=== PATIENT | male | born 2000 | race Caucasian/White ===

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

== ENCOUNTER → 2023-08-15 | Outpatient (CLI) | payer BC ==
--- NOTE | 2023-08-15 17:31 | MR ---
EXAMINATION TYPE: MR knee RT wo con DATE OF EXAM: 08/15/2023 COMPARISON: 02/21/2015 HISTORY: 23-year-old male M2 5.561, Rt knee pain TECHNIQUE: Multiplanar, multisequence imaging of the right knee is performed without IV contrast. FINDINGS: The ACL appears to be chronically torn. Some minimal wispy fibers may remain. The PCL is intact. MCL and LCL complex are intact. There is an oblique undersurface tear extending through the anterior horn of the lateral meniscus. Th e oblique tear extends posteriorly through the body to the junction with the posterior body. Mild irregular cartilage loss throughout the mid central and mid weightbearing aspect of the medial c ompartment. Diminutive appearance to the body and posterior horn of the medial meniscus could reflect chronic tea r or interval partial meniscectomy. Overall medial compartment articular cartilage volume is maintain ed. There is some focal marrow edema along the far posterior lateral femoral condyle with an adjacent 2.0 cm ganglion cyst that corresponds to the origin of the lateral head gastrocnemius. Extensor mechanism is intact. There is a small knee joint effusion without Rubio's cyst. Patellofemoral compartment articular cartilage is grossly intact. Mild thinning along the medial troc hlear facet. Normal popliteal artery anatomy and muscle bulk. No suspicious bone marrow replacement. IMPRESSION: 1. Chronically torn ACL. Some minimal wispy fibers may remain. Correlate for any instability on physi justina exam. 2. Oblique tear involving the anterior horn and body of the lateral meniscus extending back to the ju nction with the posterior horn. 3. Diminutive posterior horn and body of the medial meniscus could reflect chronic tear (progressed rom 2014) versus interval partial meniscectomy. 4. Focal marrow edema along the far posterior, nonarticular aspect of the lateral femoral condyle. Gi brittni the overlying ganglion cyst, possibly reactive change at the origin of the lateral head gastrocne mius. Possibly reflecting a partial tear at its origin versus a bone bruise.
== END | disposition home or self-care (01) ==
LOC: RADMRIMAIN 11:06
PROVIDERS: ATTEND Family Medicine
DX: M23.611 Other spontaneous disruption of anterior cruciate ligament of right knee (principal); M23.341 Other meniscus derangements, anterior horn of lateral meniscus, right knee; M23.351 Other meniscus derangements, posterior horn of lateral meniscus, right knee; M67.461 Ganglion, right knee